=== PATIENT | female | born 1980 | race Caucasian/White ===

== ENCOUNTER 2020-04-14 16:01 | Outpatient (CLI) | payer OTHER, SELFPAY ==
--- NOTE | ~2020-04-14 | MM_ITS ---
EXAMINATION: MM screening [facility] BI w thang HISTORY: Screening mammogram TECHNIQUE: Craniocaudal and mediolateral oblique 3-D tomosynthesis images were obtained and synthetic 2-D images were generated. CAD analysis was submitted and interpreted. COMPARISON: No prior mammogram is available for comparison at this institution. BREAST PARENCHYMAL COMPOSITION: The breasts are heterogeneously dense, which may obscure small masses . FINDINGS: There is no evidence of suspicious mass, calcification, or architectural distortion to sugg est malignancy in either breast. There has been no suspicious interval change. IMPRESSION: 1. No mammographic evidence of malignancy. 2. Recommend routine screening mammography in one year. BI-RADS Category 1: Negative Reviewed, dictated and finalized at location A.
== END 2020-04-14 16:02 | disposition home or self-care (01) ==
DX: Z12.31 Encounter for screening mammogram for malignant neoplasm of breast (principal)
CPT/HCPCS: 77063; 77067

== ENCOUNTER 2020-11-18 08:43 | Emergency (ER) | payer BC, SELFPAY ==
[2020-11-18 09:01] VITALS: BP 121/79; PULSE 84; RESP 16; TEMP 36.2; O2SAT 100
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
== END 2020-11-18 09:45 | disposition home or self-care (01) ==
PROVIDERS: Emergency Provider Registered Nurse
DX: S05.02XA Injury of conjunctiva and corneal abrasion without foreign body, left eye, initial encounter (principal); W20.8XXA Other cause of strike by thrown, projected or falling object, initial encounter; I10 Essential (primary) hypertension
CPT/HCPCS: 99213; A9270; G0463

== ENCOUNTER 2021-05-22 09:57 | Outpatient (CLI) | payer BC, SELFPAY ==
[2021-05-22 10:22] LABS: Hematocrit 34.3 % (37.0-47.0); Hemoglobin 11.2 g/dL (12.0-15.0); Mean Corpuscular HGB Conc 32.7 g/dl (32-36); Mean Corpuscular Hemoglobin 30.3 pg (26-34); Mean Corpuscular Volume 92.7 fl (80-100); Mean Platelet Volume 10.1 fl (7.4-10.4); Platelet Count Result 280 k/mm3 (150-375); Red Cell Distribution Width 12.9 % (11.5-14.5); White Blood Count 7.8 K/mm3 (4.5-10.0)
[2021-05-22 10:32] LABS: Anion Gap 11 mmol/L (8-16); Blood Urea Nitrogen 10 mg/dL (7-17); Calcium 9.5 mg/dL (8.4-10.2); Carbon Dioxide 22 mmol/L (22-30); Chloride 102 mmol/L (98-107); Cholesterol 191 mg/dL (0-200); Estimated Glomerular Filt Rate > 60; Glucose 96 mg/dL (65-110); HDL Direct 52 mg/dL; Magnesium 1.8 mg/dL (1.6-2.3); Potassium 4.3 mmol/L (3.4-5.0); Sodium 135 mmol/L (137-145); Triglycerides 79 mg/dL (<150)
[2021-05-22 10:42] LABS: LDL Cholesterol Direct 108 mg/dL
== END 2021-05-22 09:58 | disposition home or self-care (01) ==
PROVIDERS: PCP Family Medicine; Visit Provider Family Medicine
DX: I10 Essential (primary) hypertension (principal); Z13.220 Encounter for screening for lipoid disorders; R00.2 Palpitations
CPT/HCPCS: 36415; 80048; 80061; 83735; 84443; 85027

== ENCOUNTER 2022-03-24 16:03 | Outpatient (CLI) | payer BC, SELFPAY ==
--- NOTE | ~2022-03-24 | MM_ITS ---
EXAMINATION: MM screening [facility] BI w thnag HISTORY: Screening mammogram TECHNIQUE: Craniocaudal and mediolateral oblique 3-D tomosynthesis images were obtained and synthetic 2-D images were generated. CAD analysis was submitted and interpreted. COMPARISON: 04/14/2020 bilateral screening mammogram BREAST PARENCHYMAL COMPOSITION: The breasts are heterogeneously dense, which may obscure small masses . FINDINGS: There is no evidence of suspicious mass, calcification, or architectural distortion to sugg est malignancy in either breast. There has been no suspicious interval change. IMPRESSION: 1. No mammographic evidence of malignancy. 2. Recommend routine screening mammography in one year. BI-RADS Category 1: Negative Reviewed, dictated and finalized at location A.
== END 2022-03-24 16:04 | disposition home or self-care (01) ==
PROVIDERS: PCP Family Medicine; Visit Provider Family Medicine
DX: Z12.31 Encounter for screening mammogram for malignant neoplasm of breast (principal)
CPT/HCPCS: 77063; 77067

== ENCOUNTER 2025-06-27 15:24 | Outpatient (CLI) | payer OTHER, SELFPAY ==
--- NOTE | ~2025-06-27 | MM_ITS ---
EXAMINATION: MM screening [facility] BI w thang HISTORY: Screening TECHNIQUE: Craniocaudal and mediolateral oblique 3-D tomosynthesis images were obtained and synthetic 2-D images were generated. CAD analysis was submitted and interpreted. COMPARISON: Mammograms from 03/24/2022 and 04/14/2020 BREAST PARENCHYMAL COMPOSITION: The breasts are heterogeneously dense, which may obscure small masses. FINDINGS: There is no evidence of suspicious mass, calcification, or architectural distortion in either breast to suggest malignancy. There has been no significant interval change. IMPRESSION: 1. No mammographic evidence of malignancy. Recommend routine screening mammography in one year. BI-RADS Category 1: Negative Reviewed, dictated and finalized at location Q. IMPRESSION: 1. No mammographic evidence of malignancy. Recommend routine screening mammogra phy in one year. BI-RADS Category 1: Negative
--- OUTSIDE RECORDS SUMMARY | 2025-06-27 15:28 | XMS_ITS | Clinical Summary ---
Author Organization [facility] Address [address] [place] [address] Care Team Providers Care Liberal Arts Dean Name Role Phone Leah Washington MD Primary Care Provider Source Comments [facility],non-owned Affiliates and Associated Physician Practices is amultiple site organization consisting of ambulatory clinics and hospital sitesin [place], [place], [place] and [place]. This disclosure is being madepursuant to the Care Everywhere program and may not contain all information available regarding this patient. Last updated 18.[facility] Allergies Active Allergy Reactions Criticality Noted Date Comments Nifedipine Rash Medium 09/29/2017 Medications * Be aware that medications may not be up to date on this document. Alwaysverify current medications with the patient. lisinopril-hydro CHLOROthiazide (PRINZIDE; ZESTORETIC) 20-12.5 MG tablet TAKE 1 TABLET DAILY 30 tablet 11 05/17/2021 Active Active Problems Problem Noted Date Diagnosed Date History of gestational diabetes 09/25/2017 S/P repeat low transverse 04/29/2017 Hypertension 01/16/2012 Resolved Problems Problem Noted Date Diagnosed Date Resolved Date Gestational diabetes mellitu s (GDM) affecting second 04/12/2017 04/30/2019 screening for feta l growth retardation using ultrasonics 03/31/2017 04/30/2019 Overview (07/23/2022): IMO 2021 Update Elderly multigravida in second trimester 12/27/2016 04/30/2019 12 weeks gestation of 10/27/2016 04/12/2017 Shy garciais 01/16/2012 10/27/2016 Csection 8/6 M 05/28/2011 04/30/2019 White coat hypertension 04/23/201003/2011 Screening for condition 12/03/200903/2011 Overview (07/23/2015): Last pap smear 11/19/2008 and 12/02/[address] Marie Hypertension 12/03/2009 05/28/2011 Overview (12/03/2009): Had CT and MRI of renal arteries, echo, cardiology consult (Dr Spencer)--work up was all normal in 2006 Hyperlipidemia 12/03/2009 05/28/2011 Immunizations Immunization Administration Dates Next Due INFLUENZA VACCINE, TRIV. (AF LURIA, FLUZONE TRIVALENT; 6MO+) (IIV3) 07/08/2010 INFLUENZA VACCINE 08/23/2009 TDAP (7yrs+) 05/01/2017,12/03/2009 Family History Medical History Relation Name Comments Cancer Father bladder cancer Diabetes - Type 2 Father Hypercholesterolemia Father Hypertension Father CAD (Coronary Artery Disease) Maternal Grandfather Heart Failure Maternal Grandmother Relation Name Status Comments Father Alive Maternal Grandfather Maternal Grandmother Mother Alive Social History Tobacco Use Types Packs/Day Years Used Date Smoking Tobacco: Never Smokeless Tobacco: Never Alcohol Use Standard Drinks/Week Comments No 0 (1 standard drink = 0.6 oz pur e alcohol) Comments No Sex and Gender Information Value Date Recorded Sex Assigned at Not on file Legal Sex Female 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 Not on file Not on file Not on file Not on file Not on file Not on file Last Filed Vital Signs Vital Sign Reading Time Taken Comments Blood Pressure 132/90 04/30/2019 9:33 AM CDT Pulse 84 04/30/2019 9:33 AM CDT Temperature 36.8 C (98.2 F) 04/30/2019 9:33 AM CDT Respiratory Rate 18 05/01/2017 11:55 AM CDT Oxygen Saturation 100% 04/30/2017 5:50 AM CDT Inhaled Oxygen Concentration 99% 05/01/2017 8 :51 AM CDT Weight 67.2 kg (148 lb 3.2 oz) 04/30/2019 9:33 A M CDT Height 152.4 cm (5') 04/30/2019 9:33 AM CDT Body Mass Index 28.94 04/30/2019 9:33 AM CDT Plan of Treatment Health Maintenance Due Date Last Done Comments COLOGUARD (AGES 45-75) - COLON CA SCREENING 1979 COLON MONITORING 1979 COLONOSCOPY - COLON CA SCREENING 1979 CT COLONOGRAPHY - COLON CA SCREENING 1979 Colorectal Cancer Screening 1979 FIT - COLON CA SCREENING 1979 FLEX SIG - COLON CA SCREENING 1979 HEPATITIS C SCREENING 09/30/1997 HEPATITIS B VACCINE (1 of 3 - 19+ 3-dose series) 1998 HPV VACCINE (1 - 3-dose SCDM series) 2006 MAMMOGRAM 04/14/2022 04/14/2020 LIPID TESTING 04/30/2024 04/30/2019, 01/2017, 12/15/2015, Additional history exists DEPRESSION SCREENING 10/23/2024 COVID-19 VACCINE ( season) 2025 INFLUENZA VACCINE (#1) 2025 07/08/2010, 2008 DTAP/TDAP/TD VACCINES (3 - Td or Tdap) 05/01/2027 05/01/2017, 12/03/2009 ZOSTER VACCINE (1 of 2) 2029 HIV SCREENING Completed 10/27/2016 HIB VACCINE Aged Out No longer eligi ble based on patient's age to complete this topic MENINGOCOCCAL (Group B) VACCINE SHARED DECISION-MAKING Aged Out No longer eligible based on patient's age to complete this topic MENINGOCOCCAL GROUPS A/C/Y/W VACCINE Aged Out No longer eligible based on patient's age to complete this topic PNEUMOCOCCAL VACCINE Aged Out No long er eligible based on patient's age to complete this topic Goals Goal Patient Goal Type Associated Problems Recent Progress Patient-Stated? Author Blood Pressure < 140/90 Blood Pressure 132/90(2018 9:33 AM CDT) Kanchan Nunez MA Procedures Procedure Name Priority Date/Time Associated Diagnosis Comments MAMMO BILAT SCREENING Routine 04/14/2020 Encounter for screening for malignant neoplasm of breast LIPID PROFILE W TCHOL/HDL Routine 04/30/2019 10:34 AM CDT Annual physical exam Essential hypertension HIV-1 HIV-2 ANTIBODY W REFLX Routine 10/27/2016 11:19 AM MARKET NEWS REPORTER 12 weeks gestation of from Last 3 Months or Most Recently Relevant to Health Maintenance Results * MAMMO BILAT SCREENING (04/14/2020) Anatomical Region Laterality Modality Breast Bilateral Mammography Leah Washington MD MAMMO ORDERABLES Final Result * (ABNORMAL) LIPID PROFILE W TCHOL/HDL (04/30/2019 10:34 AM CDT) Cholesterol 222(H) <200 mg/dL [facility] ACCOUNT BILL Triglycerides 119 <150 mg/dL [facility] ACCOUNT BILL HDL Cholesterol 54 >40 mg/dL [facility] ACCOUNT BILL VLDL Calculated 24 <=30 mg/dL [facility] ACCOUNT BILL LDL Calculated 144(H) <130 mg/dL [facility] ACCOUNT BILL Comment:LDL/HDL RATIO BLOOD ([facility]) 2.7 <5.0 Cholesterol/HDL Ratio 4.1 <4.5 [facility] ACCOUNT BILL Comment:FASTING Blood BLOOD SPECIMEN / Unknown 04/30/2019 10:34 AM CDT 04/30/2019 Narrative Resulting Agency Comment Lab Testing performed at: [facility] [address] [place] [id number] Leah Washington MD LAB - CHEMISTRY ORDERABLES Melba l Result [facility] ACCOUNT BILL [address] [place] [address] * HIV-1 HIV-2 ANTIBODY W REFLX (PO REF LAB) (10/27/2016 11:19 AM MARKET NEWS REPORTER) HIV-1 Antibody Negative Negative [facility] ACCOUNT BILL HIV-2 Antibody Negative Negative [facility] ACCOUNT BILL Interpretation [facility] ACCOUNT BILL Comment: Negative for HIV-1 and HIV-2 antibodies See RNA Reflex. BLOOD SPECIMEN / Unknown 10/27/2016 11:19 AM MARKET NEWS REPORTER 10/27/2016 Narrative Resulting Agency Comment [facility] [address] [id number] Michelleherminio Reynosomarisel APPOINTMENT CLERK-STAMPING PRESS OPERATOR LAB - SEROLOGY ORDERABLES Final Result [facility] ACCOUNT BILL [address] [place] [address] from Last 3 Months or Most Recently Relevant to Health Maintenance Insurance [facility] Advance Directives * Full Code (Latest Code Status on File) Date Activated Date Inactivated Comments 04/29/2017 8:33 AM 05/01/2017 6:51 PM * FULL RESUSCITATION Date Activated Date Inactivated Comments 05/27/2011 7:51 AM 05/28/2011 5:06 PM Care Teams Liberal Arts Dean Relationship Specialty Start Date End Date Leah Washington MD [address] [place] [address] [facility] - General 11/25/10
--- OUTSIDE RECORDS SUMMARY | 2025-06-27 15:28 | XMS_ITS | Clinical Summary ---
Author Organization [facility] [address] Address [address] [place] [address] Care Team Providers Care Coal Pulverizing Operator Name Role Phone Get Lazar MD Primary Care Provider [phone] Allergies No known active allergies Medications lisinopril-hydro CHLOROthiazide (ZESTORETIC) 20-12.5 mg per tablet Take 1 tablet by mouth daily Active Active Problems No known active problems Social History Tobacco Use Types Packs/Day Years Used Date Smoking Tobacco: Never Assessed Comments Unknown Sex and Gender Information Value Date Recorded Sex Assigned at Not on file Legal Sex Female 12:51 PM CDT Gender Identity Not on file Sexual Orientation Not on file Last Filed Vital Signs Vital Sign Reading Time Taken Comments Blood Pressure 120/84 03/03/2025 1:59 PM CDT Pulse 102 03/03/2025 1:59 PM CDT Temperature 36.4 C (97.6 F) 03/03/2025 1:59 PM CDT Respiratory Rate 17 03/03/2025 1:59 PM CDT Oxygen Saturation 98% 03/03/2025 1:59 PM CDT Inhaled Oxygen Concentration - - Weight 64 kg (141 lb) 03/03/2025 1:59 PM CDT Height 162.6 cm (5' 4) 03/03/2025 1:59 PM CDT Body Mass Index 24.2 03/03/2025 1:59 PM CDT Plan of Treatment Health Maintenance Due Date Last Done Comments Cervical Cancer Screening 1979 Colon Cancer Screening-Colonoscopy 1979 Depression Screening 1979 Hepatitis C Screening 1979 Hepatitis B Screening 1997 Regular Well Visit/Exam 18-64 1997 HPV Vaccines (1 - 3-dose SCDM series) 2006 Breast Cancer Screening-Mammogram 04/14/2021 04/14/2020 Covid-19 Vaccine ( season) 2024 07/30/2021, 10/30/2020, 10/09/2020 Influenza Vaccine (#1) 2025 , 08/11/2023, 07/08/2010, Additional history exists DTaP/Tdap/Td Vaccine (3 - Td or Tdap) 05/01/2027 05/01/2017, 12/03/2009 Pneumococcal vaccine <65 Aged Out No longer eligible based on patient's age to complete this topic [place] [address] [facility] [place] Care Teams Coal Pulverizing Operator Relationship Specialty Start Date End Date Get Lazar MD [address] [place] [address] PCP - General Family Medicine 03/03/25
== END 2025-06-27 15:25 | disposition home or self-care (01) ==
LOC: ANHFOHIMG 15:26
PROVIDERS: PCP Family Medicine; Visit Provider Family Medicine
DX: Z12.31 Encounter for screening mammogram for malignant neoplasm of breast (principal)
CPT/HCPCS: 77063; 77067